=== PATIENT | female | born 1995 | race African-American/Black ===

== ENCOUNTER 2017-04-29 00:48 | Emergency (ER) | payer SELFPAY ==
[~2017-04-29] VITALS: Ht 157.5 cm; Wt 104.6 kg
[~2017-04-29 00:48] MED LIST: CHROMAGEN,1 CAPSULE PO; IBUPROFEN800 MG PO; Macrobid PO; PRENATAL TABLE1 EAC3 PO; TYLENOL EXTRA500 MG PO; Vicodin,Norco 5/325 PO; ZOFRAN4 MG PO; [UNRECOGNIZED DRUG - REMARK]
[2017-04-29 01:10] LABS: HEMOGLOBIN 11.3 G/DL (11.9-15.5); MCH 28.5 PG (29.0-34.0); MCHC 32.3 G/DL (30.0-36.0); MCV 88.2 FL (83-99); PLATELET COUNT 287 K/uL (156-360); RBC DIS.WIDTH-CV 13.1 % (11.8-14.6); RBC DIS.WIDTH-SD 42.3 % (39-53); RED BLOOD COUNT 3.97 M/uL (3.80-5.20); WHITE BLOOD COUNT 8.4 K/uL (4.1-10.2)
[2017-04-29 01:19] LABS: CHLORIDE 108 mEq/L (99-109); POTASSIUM 3.6 mEq/L (3.7-5.4); SODIUM 138 mEq/L (136-147)
[2017-04-29 01:21] LABS: GLUCOSE 106 mg/dL (70-99)
[2017-04-29 01:25] LABS: CREATININE 0.8 mg/dL (0.6-1.3); GFR ESTIMATE (CALCULATED) > 59 mL/min/; UREA NITROGEN (BUN) 12 mg/dL (9-23)
[2017-04-29 01:31] LABS: TROP-I INTERPRETATION NEGATIVE; TROPONIN-I < 0.01 ng/mL (0.0-0.30)
[2017-04-29 03:19] LABS: TROP-I INTERPRETATION NEGATIVE; TROPONIN-I < 0.01 ng/mL (0.0-0.30)
[2017-04-29] MEDS ORDERED: TAMIFLU75 MG PO (03:52)
[2017-04-29 04:16] VITALS: BP 128/72
== END 2017-04-29 04:16 | disposition home or self-care (01) ==
LOC: EME 00:48
PROVIDERS: Emergency Medicine
DX: J11.1 Influenza due to unidentified influenza virus with other respiratory manifestations (principal); J11.2 Influenza due to unidentified influenza virus with gastrointestinal manifestations; F17.200 Nicotine dependence, unspecified, uncomplicated
CPT/HCPCS: 71046; 80048; 84484; 85027; 93005; 99281; 99284

== ENCOUNTER 2017-08-06 08:36 | Emergency (ER) | payer SELFPAY ==
[~2017-08-06] VITALS: Ht 157.5 cm; Wt 111.4 kg
[~2017-08-06 08:36] MED LIST changes: +TAMIFLU75 MG PO
[2017-08-06 09:07] LABS: HEMATOCRIT 34.1 % (36.0-46.0); MCH 28.1 PG (29.0-34.0); MCHC 32.3 G/DL (30.0-36.0); PLATELET COUNT 283 K/uL (156-360); RBC DIS.WIDTH-CV 13.3 % (11.8-14.6); RBC DIS.WIDTH-SD 41.8 % (39-53); RED BLOOD COUNT 3.92 M/uL (3.80-5.20); WHITE BLOOD COUNT 9.2 K/uL (4.1-10.2)
[2017-08-06 09:19] LABS: ALBUMIN 4.1 g/dL (3.2-4.8); CHLORIDE 107 mEq/L (99-109); SODIUM 138 mEq/L (136-147)
[2017-08-06 09:22] LABS: GLUCOSE 100 mg/dL (70-99); TOTAL PROTEIN 7.1 g/dL (6.4-8.3)
[2017-08-06 09:24] LABS: TOTAL BILIRUBIN 0.4 mg/dL (0.0-1.0)
[2017-08-06 09:25] LABS: ALKALINE PHOSPHATASE 94 IU/L (3-129); CREATININE 0.7 mg/dL (0.6-1.3); GFR ESTIMATE (CALCULATED) > 59 mL/min/
[2017-08-06 09:26] LABS: UREA NITROGEN (BUN) 11 mg/dL (9-23)
[2017-08-06 09:27] LABS: AST (GOT) 12 IU/L (2-34)
[2017-08-06 09:28] LABS: ALT (GPT) 17 IU/L (3-49)
[2017-08-06 09:35] LABS: APPEARANCE CLOUDY ((CLEAR)); BILIRUBIN NEGATIVE; BLOOD LARGE; COLOR AMBER ((YELLOW)); GLUCOSE (STRIP) NEGATIVE; KETONES NEGATIVE; LEUKOCYTES NEGATIVE; NITRITE NEGATIVE; PROTEIN (STRIP) 100; SPECIFIC GRAVITY 1.026 (1.000-1.030)
[2017-08-06 09:35] LABS: QUANTITATIVE HCG 5000.9 MIU/ML
[2017-08-06 09:57] LABS: BACTERIA RARE /HPF; EPITHELIAL CELLS RARE /HPF; MUCUS NONE SEEN /LPF; RED BLOOD CELLS TNTC /HPF (0-5); UCUL ADDED? YES; WHITE BLOOD CELLS NONE SEEN /HPF (0-5)
[2017-08-06] MEDS ORDERED: PERCOCET 5/31 TABLET PO (13:57)
[2017-08-06] MEDS ORDERED: ZOFRAN4 MG PO (13:59)
[2017-08-06 14:18] VITALS: BP 120/60
[2017-08-08 09:37] LABS: SOURCE SWAB
== END 2017-08-06 14:35 | disposition home or self-care (01) ==
LOC: EME 08:36
PROVIDERS: Physician Assistant
DX: O03.9 Complete or unspecified spontaneous abortion without complication (principal); N83.201 Unspecified ovarian cyst, right side; N83.202 Unspecified ovarian cyst, left side; F17.200 Nicotine dependence, unspecified, uncomplicated
CPT/HCPCS: 76801; 80053; 81003; 84702; 85027; 86900; 86901; 87086; 87210; 87491; 87591; 88305; 99281; 99285; J0696; J2405; J7030

== ENCOUNTER 2017-08-09 08:46 | Day surgery (SDC) | payer SELFPAY ==
[~2017-08-09] VITALS: Ht 157.5 cm; Wt 109.4 kg
[~2017-08-09 08:46] MED LIST changes: +PERCOCET 5/31 TABLET PO
[2017-08-09 09:18] LABS: BASOPHIL (%) 0.2 % (0-1); EOSINOPHIL (%) 1.7 % (0-5); EOSINOPHIL COUNT 0.2 K/uL (0-0.3); HEMATOCRIT 29.4 % (36.0-46.0); HEMOGLOBIN 9.7 G/DL (11.9-15.5); IMMATURE GRANULOCYTE (%) 0.8 % (0.0-0.7); LYMPHOCYTE (%) 33.5 % (15-42); MCH 28.6 PG (29.0-34.0); MCV 86.7 FL (83-99); MONOCYTE (%) 5.9 % (3-12); MONOCYTE COUNT 0.5 K/uL (0-0.8); NEUTROPHIL (%) 57.9 % (45-76); NEUTROPHIL COUNT 5.1 K/uL (1.8-6.4); PLATELET COUNT 281 K/uL (156-360); RBC DIS.WIDTH-CV 13.3 % (11.8-14.6); RBC DIS.WIDTH-SD 41.6 % (39-53); RED BLOOD COUNT 3.39 M/uL (3.80-5.20); WHITE BLOOD COUNT 8.8 K/uL (4.1-10.2)
[2017-08-09 09:28] LABS: CHLORIDE 109 mEq/L (99-109); POTASSIUM 3.7 mEq/L (3.7-5.4); SODIUM 140 mEq/L (136-147)
[2017-08-09 09:30] LABS: GLUCOSE 98 mg/dL (70-99)
[2017-08-09 09:34] LABS: CREATININE 0.7 mg/dL (0.6-1.3); GFR ESTIMATE (CALCULATED) > 59 mL/min/
[2017-08-09 09:35] LABS: UREA NITROGEN (BUN) 10 mg/dL (9-23)
[2017-08-09] MEDS ORDERED: CENTRUM WOMEN1 EACH PO (12:51)
[2017-08-09] MEDS ORDERED: TYLENOL EXTRA500 MG PO (12:51)
[2017-08-09] MEDS ORDERED: MOTRIN600 MG PO (14:00)
[2017-08-09] MEDS ORDERED: VIBRAMYCIN100 MG PO (14:00)
[2017-08-09 17:11] VITALS: BP 133/81
[2017-08-09 18:06] VITALS: BP 115/74
== END 2017-08-09 18:09 | disposition home or self-care (01) ==
LOC: EME 08:46 → SDC 12:58 → EME 12:58 → SDC 18:09
PROVIDERS: Emergency Medicine
PROC: 10D17ZZ Extraction of Products of Conception, Retained, Via Natural or Artificial Opening (ICD-10-PCS; principal; 2017-08-09)
DX: O03.1 Delayed or excessive hemorrhage following incomplete spontaneous abortion (principal); D62 Acute posthemorrhagic anemia; F17.210 Nicotine dependence, cigarettes, uncomplicated
CPT/HCPCS: 76816; 80048; 84702; 85025; 88305; 99281; 99285; J0330; J1100; J1885; J2250; J2405; J2765; J3010; J7030; J7643

== ENCOUNTER 2017-10-29 20:57 | Emergency (ER) | payer SELFPAY ==
[~2017-10-29] VITALS: Ht 154.9 cm; Wt 105.7 kg
[~2017-10-29 20:57] MED LIST changes: +CENTRUM WOMEN1 EACH PO; +MOTRIN600 MG PO; +VIBRAMYCIN100 MG PO
[2017-10-29 21:44] LABS: HEMOGLOBIN 10.8 G/DL (11.9-15.5); MCH 26.5 PG (29.0-34.0); MCHC 31.8 G/DL (30.0-36.0); MCV 83.5 FL (83-99); PLATELET COUNT 302 K/uL (156-360); RBC DIS.WIDTH-CV 13.5 % (11.8-14.6); RBC DIS.WIDTH-SD 41.6 % (39-53); RED BLOOD COUNT 4.07 M/uL (3.80-5.20); WHITE BLOOD COUNT 7.7 K/uL (4.1-10.2)
[2017-10-29 21:56] LABS: ALBUMIN 4.4 g/dL (3.2-4.8); CHLORIDE 107 mEq/L (99-109); POTASSIUM 3.4 mEq/L (3.7-5.4); SODIUM 139 mEq/L (136-147)
[2017-10-29 21:58] LABS: GLUCOSE 97 mg/dL (70-99)
[2017-10-29 22:00] LABS: TOTAL BILIRUBIN 0.6 mg/dL (0.0-1.0)
[2017-10-29 22:02] LABS: ALKALINE PHOSPHATASE 103 IU/L (3-129); CREATININE 0.9 mg/dL (0.6-1.3); GFR ESTIMATE (CALCULATED) > 59 mL/min/
[2017-10-29 22:03] LABS: AST (GOT) 18 IU/L (2-34); UREA NITROGEN (BUN) 11 mg/dL (9-23)
[2017-10-29 22:05] LABS: ALT (GPT) 25 IU/L (3-49); LIPASE 22 U/L (1.0-51.0)
[2017-10-29 22:11] LABS: QUANTITATIVE HCG < 4.0 MIU/ML
[2017-10-30 01:44] LABS: APPEARANCE CLEAR ((CLEAR)); BILIRUBIN NEGATIVE; BLOOD SMALL; COLOR AMBER ((YELLOW)); GLUCOSE (STRIP) NEGATIVE; KETONES NEGATIVE; LEUKOCYTES SMALL; NITRITE POSITIVE; PROTEIN (STRIP) 100; SPECIFIC GRAVITY 1.034 (1.000-1.030)
[2017-10-30] MEDS ORDERED: TRAMADOL HCL50 MG PO (01:58)
[2017-10-30] MEDS ORDERED: NAPROSYN500 MG PO (01:58)
[2017-10-30] MEDS ORDERED: PROMETHAZINE HC25 M1 PO (01:58)
[2017-10-30 01:59] LABS: SOURCE URINE
[2017-10-30 02:17] LABS: BACTERIA 2+ /HPF; EPITHELIAL CELLS 1+ /HPF; MUCUS RARE /LPF; WHITE BLOOD CELLS 40-50 /HPF (0-5)
[2017-10-30 02:27] VITALS: BP 124/76
[2017-10-31 12:41] LABS: CHLAMYDIA TRACHOMATIS NEGATIVE; NEISSERIA GONORRHOEAE NEGATIVE
== END 2017-10-30 02:30 | disposition home or self-care (01) ==
LOC: RME 20:57 → EME 20:57 → RME 10-30 02:30
PROVIDERS: Nurse Practitioner Family
DX: N39.0 Urinary tract infection, site not specified (principal); R11.2 Nausea with vomiting, unspecified; F12.90 Cannabis use, unspecified, uncomplicated; F17.200 Nicotine dependence, unspecified, uncomplicated; Z87.440 Personal history of urinary (tract) infections
CPT/HCPCS: 74022; 76856; 80053; 81003; 83690; 84702; 85027; 87491; 87591; 93975; 99281; 99285; J0696; J1885; J2060; J2405; J7030; Q0169